=== PATIENT | female | born 1995 | race Caucasian/White ===

== ENCOUNTER 2017-01-13 15:44 | Emergency (ER) | payer BC ==
[~2017-01-13] VITALS: Ht 167.6 cm; Wt 56.2 kg
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
[2017-01-13 15:49] VITALS: BP_SYST 130
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
--- NOTE | 2017-01-13 16:00 | NUR ---
Dr. Hou at bedside to assess pt.
[2017-01-13 16:10] LABS: BILIRUBIN,URINE NEGATIVE (NEGATIVE); BLOOD, URINE NEGATIVE (NEGATIVE); CLARITY/URINE CLEAR (CLEAR); COLOR,URINE YELLOW (YELLOW); GLUCOSE,URINE NEGATIVE (NEGATIVE); KETONES,URINE NEGATIVE (NEGATIVE); LEUKOCYTE ESTERASE ,URINE 2+ (NEGATIVE); NITRITE, URINE NEGATIVE (NEGATIVE); PH,URINE 7.5 (5.0-8.0); PROTEIN URINE NEGATIVE (NEGATIVE); UROBILINOGEN,URINE 0.2 (0.2-1.0)
[2017-01-13 16:19] LABS: BACTERIA,URINE FEW /HPF (None Seen); MUCUS,URINE None Seen /LPF (None Seen); RBC,URINE NONE SEEN /HPF (0-3)
--- NOTE | 2017-01-13 17:00 | NUR ---
Pt alert, sitting up in bed talking with family members. No needs verbalized at this time.
[2017-01-13 17:28] VITALS: BP_SYST 123
--- NOTE | 2017-01-13 17:28 | NUR ---
Patient given written and verbal discharge instructions and verbalizes understanding. ER MD discussed with patient the results and treatment provided. Given copies of tests performed in ER. Patient in stable condition. ID arm band removed. Rx of Nitrofurantoin and Ibuprofen given. Patient educated on pain management and to follow up with PMD. Pain Scale 2/10, tolerable. Pt refused pain medication offered. Opportunity for questions provided and answered.
== END 2017-01-13 17:28 | disposition home or self-care (01) ==
LOC: SED 15:44
DX: N39.0 Urinary tract infection, site not specified (principal); R31.9 Hematuria, unspecified; R51 Headache; V89.2XXA Person injured in unspecified motor-vehicle accident, traffic, initial encounter; Y93.89 Activity, other specified; Y99.8 Other external cause status; Y92.89 Other specified places as the place of occurrence of the external cause
CPT/HCPCS: 70450; 81000; 81025; 87086; 87186; 99285; J7030